=== PATIENT | female | born 1955 | race Caucasian/White ===

== ENCOUNTER → 2023-06-02 17:10 | Outpatient (REF) | payer BC, SELFPAY | LOC: WDC 17:10 | PROVIDERS: ATTENDING PHYSICIAN Family Medicine | DX: Z12.31 Encounter for screening mammogram for malignant neoplasm of breast (principal) | CPT/HCPCS: 77063; 77067 ==

== ENCOUNTER → 2024-06-02 17:47 | Outpatient (REF) | payer BC, SELFPAY | LOC: WDC 17:47 | PROVIDERS: ATTENDING PHYSICIAN Family Medicine | DX: Z12.31 Encounter for screening mammogram for malignant neoplasm of breast (principal) | CPT/HCPCS: 77063; 77067 ==